=== PATIENT | female | born 1980 | race Two or more races ===

== ENCOUNTER 2023-06-11 14:25 | Emergency (ER) | payer MEDICARE, OTHER ==
[~2023-06-11] VITALS: Ht 175.3 cm; Wt 103.0 kg
[2023-06-11 16:50] VITALS: BP 138/88; TEMP 98.2; O2SAT 98
== END 2023-06-11 16:51 | disposition home or self-care (01) ==
LOC: ER 14:35
DX: S50.811A Abrasion of right forearm, initial encounter (principal); S30.811A Abrasion of abdominal wall, initial encounter; I12.0 Hypertensive chronic kidney disease with stage 5 chronic kidney disease or end stage renal disease; N18.6 End stage renal disease; Z99.2 Dependence on renal dialysis; Z88.8 Allergy status to other drugs, medicaments and biological substances; V47.5XXA Car driver injured in collision with fixed or stationary object in traffic accident, initial encounter; Y93.89 Activity, other specified; Y92.89 Other specified places as the place of occurrence of the external cause; Y99.8 Other external cause status